=== PATIENT | female | born 1990 | race African-American/Black ===

== ENCOUNTER 2017-11-25 15:47 | Emergency (ER) | payer MEDICAID ==
[~2017-11-25] VITALS: Ht 154.9 cm; Wt 59.0 kg
[2017-11-25 15:58] VITALS: BP 105/69
[2017-11-25] MEDS ORDERED: prenatal (16:03)
== END 2017-11-25 22:05 | disposition left against medical advice (07) ==
LOC: ER 15:47
DX: R19.7 Diarrhea, unspecified (principal); Z53.21 Procedure and treatment not carried out due to patient leaving prior to being seen by health care provider

== ENCOUNTER 2018-06-03 12:23 | Inpatient (IN) | payer MEDICAID ==
[~2018-06-03] VITALS: Ht 154.9 cm; Wt 68.9 kg
[~2018-06-03 12:23] MED LIST: prenatal
[2018-06-03] MEDS ORDERED: DEXT 5%/LR + PITOCIN 20UNITS/L 1,000 ML IV SCH (13:03)
[2018-06-03] MEDS ORDERED: CITRIC ACID/SODIUM CITRATE SOLN 30ML UDC PO SCH (13:10)
[2018-06-03] MEDS ORDERED: METHYLERGONOVINE MALEATE 0.2 MG/ML IM PRN (13:15)
[2018-06-03] MEDS ORDERED: NALOXONE HCL 0.4 MG/ML 1ML VIAL IM PRN (13:15)
[2018-06-03] MEDS: LACTATED RINGERS 1,000 ML IV SCH ×2 (13:36→17:38)
[2018-06-03 14:14] LABS: BASOPHILS % 0.2 % (0.0-2.0); CLARITY URINE CLEAR (CLEAR); COLOR URINE YELLOW (YELLOW); EOSINOPHILS % 0.6 % (0.0-5.0); HEMATOCRIT. 35.3 % (36.0-48.0); HEMOGLOBIN. 11.8 g/dL (12.0-16.0); KETONES URINE NEGATIVE (NEGATIVE); LEUKOCYTE ESTERASE URINE 2+ (NEGATIVE); LYMPHOCYTES % 25.4 % (20.0-50.0); MEAN CORPUSCULAR HEMOGLOBIN 28.6 pg (28.0-32.0); MEAN CORPUSCULAR VOLUME 85.3 fL (81.0-99.0); MEAN PLATELET VOLUME 7.7 fl (7.4-10.4); NEUTROPHILS % 65.8 % (40.0-76.0); NITRITE URINE NEGATIVE (NEGATIVE); OCCULT BLOOD URINE 1+ (NEGATIVE); PLATELET 216 x1000/uL (130-400); PROTEIN URINE NEGATIVE (NEGATIVE); RED BLOOD CELL COUNT 4.14 mill/uL (4.2-5.4); RED CELL DISTRIBUTION WIDTH 15.1 % (11.6-14.6); SPECIFIC GRAVITY URINE 1.018 (1.005-1.030); UROBILINOGEN URINE 0.2 E.U./dL (0.2-1.0)
[2018-06-03 14:22] LABS: PARTIAL THROMBOPLASTIN TIME 27.4 sec (23.4-31.0); PROTHROMBIN TIME 9.9 sec (9.1-11.1)
[2018-06-03 14:32] LABS: METHADONE URINE SCREEN NEGATIVE (NEGATIVE); OPIATES URINE SCREEN NEGATIVE (NEGATIVE)
[2018-06-03 14:33] LABS: *AMPHETAMINES SCREEN URINE NEGATIVE (NEGATIVE); *BARBITURATES SCREEN URINE NEGATIVE (NEGATIVE); *BENZODIAZEPINES SCREEN URINE NEGATIVE (NEGATIVE); *COCAINE SCREEN URINE NEGATIVE (NEGATIVE); CANNABINOID URINE SCREEN NEGATIVE (NEGATIVE); PHENCYCLIDINE URINE SCREEN NEGATIVE (NEGATIVE)
[2018-06-03 15:03] LABS: HEPATITIS B SURFACE ANTIGEN NEGATIVE
[2018-06-03] MEDS ORDERED: CITRIC ACID/SODIUM CITRATE SOLN 30ML UDC PO ONE (16:00)
[2018-06-03] MEDS ORDERED: FENTANYL CITRATE/PF 50MCG/ML 2ML VIAL ONE (16:51)
[2018-06-03] MEDS ORDERED: BUPIVACAINE HCL/DEXTROSE/PF 0.75% 2ML AMP INJ ONE (16:51)
[2018-06-03] MEDS ORDERED: MORPHINE SULFATE/PF 1MG/ML 10ML AMP ONE (16:51)
[2018-06-03] MEDS ORDERED: CEFAZOLIN SODIUM 1000MG/VIAL ONE (16:55)
[2018-06-03] MEDS ORDERED: SODIUM CHLORIDE 0.9% 10ML VIAL ONE (16:56)
[2018-06-03] MEDS ORDERED: GLYCOPYRROLATE 0.2 MG/ML 2ML VIAL ONE (19:13)
[2018-06-03] MEDS ORDERED: OXYTOCIN 10 UNITS/ML 1ML ONE ×2 (19:14→19:24)
[2018-06-03] MEDS ORDERED: ESMOLOL HCL 10MG/ML 10ML VIAL IV ONE (19:17)
[2018-06-03] MEDS ORDERED: DIPHENHYDRAMINE 50MG/ML VIAL ONE (19:36)
[2018-06-03] MEDS ORDERED: KETOROLAC 60MG/2ML VIAL IM ONE (19:36)
[2018-06-03] MEDS ORDERED: DIPHENHYDRAMINE 50MG/ML VIAL IV PRN (19:45)
[2018-06-03] MEDS ORDERED: NALOXONE HCL 0.4 MG/ML 1ML VIAL IV PRN (19:45)
[2018-06-03] MEDS ORDERED: BUTORPHANOL TARTRATE 2 MG/ML VIAL IV PRN (19:45)
[2018-06-03] MEDS ORDERED: KETOROLAC 30MG/ML VIAL IV PRN (19:45)
[2018-06-03] MEDS ORDERED: ONDANSETRON HCL 4MG/2ML INJ IV PRN (20:00)
[2018-06-03] MEDS ORDERED: INFLUENZA VIRUS VACCINE(AFLURIA) 0.5ML SYR IM ONE (20:00)
[2018-06-03] MEDS ORDERED: LANOLIN OINT 0.25 GM TUBE TOP PRN (20:00)
[2018-06-03] MEDS ORDERED: TETANUS, DIPHTHERIA, PERTUSSIS VAC/PF 0.5ML (>7YR OLD) IM ONE (20:00)
[2018-06-03] MEDS ORDERED: BISACODYL 10MG SUPP PR PRN (20:00)
[2018-06-03] MEDS ORDERED: IBUPROFEN 400MG TABLET PO PRN (20:00)
[2018-06-03] MEDS: DEXT 5%/LR + PITOCIN 20UNITS/L 1,000 ML IV SCH (22:15)
[2018-06-03 22:30] VITALS: BP 112/68
[2018-06-03 23:00] VITALS: BP 106/60
[2018-06-04 06:59] LABS: BASOPHILS % 0.3 % (0.0-2.0); EOSINOPHILS % 0.4 % (0.0-5.0); HEMATOCRIT. 28.5 % (36.0-48.0); HEMOGLOBIN. 9.4 g/dL (12.0-16.0); LYMPHOCYTES % 15.1 % (20.0-50.0); MEAN CORPUSCULAR HEMOGLOBIN 27.8 pg (28.0-32.0); MEAN CORPUSCULAR VOLUME 84.8 fL (81.0-99.0); MEAN PLATELET VOLUME 7.8 fl (7.4-10.4); MONOCYTES % 5.9 % (2.0-8.0); NEUTROPHILS % 78.3 % (40.0-76.0); PLATELET 183 x1000/uL (130-400); RED BLOOD CELL COUNT 3.36 mill/uL (4.2-5.4); RED CELL DISTRIBUTION WIDTH 14.7 % (11.6-14.6)
[2018-06-04 08:00] VITALS: BP 107/59
[2018-06-04] MEDS: FERROUS SULFATE 325MG TABLET PO SCH ×3 (10:38→17:30)
[2018-06-04] MEDS: SIMETHICONE 80MG TABLET CHEW PO SCH ×4 (10:39→21:12)
[2018-06-04] MEDS: DIPHENHYDRAMINE 25MG CAPSULE PO PRN ×2 (14:44→20:25)
[2018-06-04] MEDS: DEXT 5%/LR + PITOCIN 20UNITS/L 1,000 ML IV SCH (15:59)
[2018-06-04] MEDS: IBUPROFEN 800MG TABLET PO PRN (16:24)
[2018-06-04 19:56] VITALS: BP 106/58
[2018-06-04] MEDS: DOCUSATE SODIUM 100MG CAPSULE PO SCH (20:23)
[2018-06-05] MEDS: IBUPROFEN 800MG TABLET PO PRN ×2 (04:25→19:37)
[2018-06-05 04:30] VITALS: BP 120/72
[2018-06-05] MEDS: FERROUS SULFATE 325MG TABLET PO SCH ×3 (07:30→17:10)
[2018-06-05 08:23] VITALS: BP 97/60
[2018-06-05] MEDS: SIMETHICONE 80MG TABLET CHEW PO SCH ×4 (09:03→21:00)
[2018-06-05 19:30] VITALS: BP 105/77
[2018-06-05] MEDS: DOCUSATE SODIUM 100MG CAPSULE PO SCH (21:00)
[2018-06-05] MEDS: HYDROCODONE/ACETAMINOPHEN 5/325MG TABLET PO PRN (21:09)
[2018-06-06] VITALS: BP 118/76
[2018-06-06] MEDS: HYDROCODONE/ACETAMINOPHEN 5/325MG TABLET PO PRN ×3 (01:00→10:22)
[2018-06-06 04:00] VITALS: BP 106/64
[2018-06-06 07:36] VITALS: BP 99/51
[2018-06-06] MEDS: FERROUS SULFATE 325MG TABLET PO SCH (08:30)
[2018-06-06] MEDS: SIMETHICONE 80MG TABLET CHEW PO SCH (08:31)
== END 2018-06-06 13:15 | disposition home or self-care (01) | DRG 541 ==
LOC: 8 EST LDRP 12:23 → OBSVTOIN 12:23 → 8 EST LDRP 14:04 → 8EST 06-04 00:05
PROVIDERS: ADMIT Specialist; ATTEND Specialist
PROC: 0UB70ZZ Excision of Bilateral Fallopian Tubes, Open Approach (ICD-10-PCS; principal; 2018-06-03)
PROC: 10E0XZZ Delivery of Products of Conception, External Approach (ICD-10-PCS; 2018-06-03)
DX: O34.211 Maternal care for low transverse scar from previous cesarean delivery (principal); F41.9 Anxiety disorder, unspecified; Z37.0 Single live birth; O99.344 Other mental disorders complicating childbirth; N73.6 Female pelvic peritoneal adhesions (postinfective); Z30.2 Encounter for sterilization; Z3A.39 39 weeks gestation of pregnancy
CPT/HCPCS: 36415; 80305; 86592; 86703; 86762; 86850; 86900; 87340; 88302; 88307; G0378; J0595; J0690; J1200; J1885; J2274; J2405; J2590; J3010; J3490; J7120; Q0163